=== PATIENT | male | born 1995 | race Caucasian/White ===

== ENCOUNTER 2020-06-13 12:12 | Emergency (ER) | payer OTHER ==
[~2020-06-13] VITALS: Ht 190.5 cm; Wt 83.0 kg
[~2020-06-13 12:12] MED LIST: NAPR500 PO; Naprosyn500 MG PO
== END 2020-06-13 15:28 | disposition home or self-care (01) ==
LOC: ER 12:12
DX: S51.012A Laceration without foreign body of left elbow, initial encounter (principal); F17.200 Nicotine dependence, unspecified, uncomplicated; Z23 Encounter for immunization; W01.0XXA Fall on same level from slipping, tripping and stumbling without subsequent striking against object, initial encounter; Y93.01 Activity, walking, marching and hiking; Y92.410 Unspecified street and highway as the place of occurrence of the external cause
CPT/HCPCS: 12001; 73070; 73080; 90471; 90714; 99283-25

== ENCOUNTER 2020-06-23 12:40 | Emergency (ER) | payer OTHER ==
[~2020-06-23] VITALS: Ht 175.3 cm; Wt 74.8 kg
== END 2020-06-23 13:01 | disposition home or self-care (01) ==
LOC: ER 12:40
DX: S51.812D Laceration without foreign body of left forearm, subsequent encounter (principal); X58.XXXD Exposure to other specified factors, subsequent encounter; F17.200 Nicotine dependence, unspecified, uncomplicated

== ENCOUNTER 2020-10-08 02:21 | Emergency (ER) | payer OTHER ==
[~2020-10-08] VITALS: Ht 190.5 cm; Wt 83.9 kg
== END 2020-10-08 03:38 | disposition home or self-care (01) ==
LOC: ER 02:21
DX: S50.11XA Contusion of right forearm, initial encounter (principal); F17.200 Nicotine dependence, unspecified, uncomplicated; W01.0XXA Fall on same level from slipping, tripping and stumbling without subsequent striking against object, initial encounter
CPT/HCPCS: 73090; 99283-25

== ENCOUNTER → 2023-08-03 | Outpatient (CLI) | payer OTHER | END | disposition home or self-care (01) | LOC: LAB 19:52 → LAB SHORT 19:52 | DX: J36 Peritonsillar abscess (principal) ==

== ENCOUNTER 2023-08-05 20:43 | Emergency (ER) | payer OTHER ==
[~2023-08-05] VITALS: Ht 190.5 cm; Wt 93.0 kg
[2023-08-05 21:34] VITALS: BP 148/90
== END 2023-08-05 22:33 | disposition home or self-care (01) ==
LOC: ER 20:43
DX: J02.0 Streptococcal pharyngitis (principal); F17.210 Nicotine dependence, cigarettes, uncomplicated
CPT/HCPCS: 99282